=== PATIENT | male | born 1955 | race African-American/Black ===

== ENCOUNTER 2019-04-12 12:09 | Emergency (ER) | payer OTHER ==
[~2019-04-12] VITALS: Ht 190.5 cm; Wt 102.1 kg
[2019-04-12 12:36] LABS: URINE BILIRUBIN NEGATIVE (Negative); URINE BLOOD TRACE (Negative); URINE CLARITY CLEAR; URINE COLOR YELLOW; URINE GLUCOSE-RANDOM* NEGATIVE (Negative); URINE KETONES NEGATIVE (Negative); URINE LEUKOCYTES-REFLEX NEGATIVE (Negative); URINE NITRITE-REFLEX NEGATIVE (Negative); URINE PROTEIN (DIPSTICK) NEGATIVE (Negative); URINE UROBILINOGEN 0.2 E.U./dl (0.2-1.0)
[2019-04-12 13:14] LABS: ABSOLUTE NEUTROPHILS 2.9 thou/uL (1.4-8.2); BASOPHILS 0.7 % (0.0-2.0); EOSINOPHILS 3.5 % (0.0-3.0); HEMATOCRIT 40.1 % (42.0-52.0); HEMOGLOBIN 13.8 gm/dL (14.0-18.0); LYMPHOCYTES 26.4 % (24.0-44.0); MCH 32.3 pg (26.0-34.0); MCHC 34.3 g/dL (28.0-37.0); MCV 94.1 fL (80.0-100.0); MONOCYTES 8.8 % (1.0-8.0); PLATELET COUNT 334 thou/uL (150-400); POLYS 60.6 % (36.0-66.0); RBC 4.26 mil/uL (4.50-6.00); RDW 12.9 % (10.5-14.5); WBC 4.7 thou/uL (4.0-11.0)
[2019-04-12 13:23] LABS: CALCIUM 8.6 mg/dL (8.5-10.1); CREATININE 0.9 mg/dL (0.7-1.3); POTASSIUM 4.3 mmol/L (3.5-5.1)
[2019-04-12 13:29] LABS: ALBUMIN 3.5 g/dL (3.4-5.0); TOTAL BILIRUBIN 0.8 mg/dL (<0.1-1.0); TOTAL PROTEIN 7.2 g/dL (6.4-8.2)
[2019-04-12] MEDS ORDERED: ACETAMINOPHEN500 M1 PO (13:58)
[2019-04-12 14:00] VITALS: BP 159/72
== END 2019-04-12 14:00 | disposition home or self-care (01) ==
LOC: ER 12:09
PROVIDERS: Emergency Medicine
DX: K40.90 Unilateral inguinal hernia, without obstruction or gangrene, not specified as recurrent (principal)

== ENCOUNTER 2020-03-27 06:47 | Day surgery (SDC) | payer BC ==
[~2020-03-27] VITALS: Ht 190.5 cm; Wt 113.4 kg
[~2020-03-27 06:47] MED LIST: ACETAMINOPHEN500 M1 PO; DUTASTERIDE0.5 MG PO; FLOMAX0.4 MG PO; LIPITOR40 MG PO; MELOXICAM7.5 MG PO; VITAMIN C500 M2 PO; ZESTRIL40 MG PO
[2020-03-27 08:01] VITALS: BP 158/76
--- NOTE | 2020-03-27 08:22 | EKG ---
[facility] [place] [address] ELECTROCARDIOGRAM REPORT Name: MESSI PLASCENCIA Room #: 150-2 [facility]..#: [id number] Admission: 03/27/20 Attend Phys: Calixto Sellers MD Discharge: Date of : 59 Report #: [id number] THIS REPORT FOR: cc: Gray Case David J. DO Lundgren, Craig H. 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
--- NOTE | 2020-03-27 09:10 | H ---
[facility] [place] [address] HISTORY AND PHYSICAL Name: MESSI PLASCENCIA Room #: 150-2 [facility].#: [id number] Admission: 03/27/20 Attend Phys: Calixto Sellers MD Discharge: Date of : 59 Report #: [id number] THIS REPORT FOR: cc: Gray Case,Gray Burks,Calixto Cavazos MD ~ CC: Gray Helton DATE OF ADMISSION AND SURGERY: 03/27/2020 CHIEF COMPLAINT: Lump in my groin and belly button. HISTORY OF PRESENT ILLNESS: The patient is a 64-year-old -[place] male who about a year ago started noticing a lump in his left groin. It has gradually been getting larger and becomes more painful and carrillo at times. He has also noticed a bulge in his umbilicus for many years. He denied any previous history of any other hernias. No changes in bowel habits. His last colonoscopy was 3 years ago and was normal. He also denied any urinary changes. He saw Dr. Case who recommended surgical consultation. PAST MEDICAL HISTORY: Hyperlipidemia, erectile dysfunction, benign prostatic hypertrophy, left hip replacement surgery in 2006. MEDICATIONS: Minocycline 100 mg p.o. q. 12 hours, Viagra p.r.n., atorvastatin 40 mg p.o. every day, lisinopril 40 mg p.o. every day, meloxicam 7.5 mg p.o. every day, dutasteride 0.5 mg p.o. every day. ALLERGIES: No known drug allergies. FAMILY HISTORY: Noncontributory. SOCIAL HISTORY: , quit smoking in 2012. Drinks alcohol occasionally and in moderation. REVIEW OF SYSTEMS Pertinent positives as above. Full review of systems otherwise negative. PHYSICAL EXAMINATION: GENERAL: This is a well-developed, well-nourished -[place] male in no acute distress. VITAL SIGNS: Stable. He is afebrile. HEENT: Sclerae are nonicteric. Mucous membranes moist and pink. NECK: There is no adenopathy. LUNGS: Clear to auscultation bilaterally, no excursion. CARDIOVASCULAR: Regular rate and rhythm. No murmurs, S3 or S4. Normal PMI. [address] [address] HISTORY AND PHYSICAL Name: MESSI PLASCENCIA Room #: [facility]..#: [id number] Admission: 03/27/20 Attend Phys: Calixto Sellers MD Discharge: Date of : 59 Report #: [id number] ABDOMEN: Soft, flat and nontender. No palpable masses, no organomegaly. He does have a small to moderate reducible umbilical hernia. EXTREMITIES: No clubbing, cyanosis or edema. GENITOURINARY: Normal scrotum, phallus and testes. There was a moderate to large partially reducible tender left inguinal hernia. NEUROLOGIC: Intact with a clear mental status. IMPRESSION: A 64-year-old -[place] male with a left inguinal hernia and umbilical hernia. I fully discussed with the patient diagnosis, prognosis, and treatment options and the risks and benefits of each. He states he understands and agrees to proposed surgery. PLAN: We will perform left inguinal hernia repair and umbilical hernia repair under local IV sedation as an outpatient at [facility]. The procedure and its risks, benefits and possible complications were fully discussed with the patient. He states he understands and agrees to proposed surgery. We also discussed the use of mesh for these hernias. <ELECTRONICALLY SIGNED> By: Calixto Sellers MD 03/27/20 0910 [id number] Calixto Sellers MD /nt
[2020-03-27] MEDS ORDERED: NORCO 5-325 TA1 EAC1 PO (09:13)
[2020-03-27 11:24] VITALS: BP 158/76
--- NOTE | 2020-03-27 16:43 | O ---
[facility] [place] [address] OPERATIVE REPORT Name: MESSI PLASCENCIA Room #: DEP [facility]#: [id number] Admission: 03/27/20 Attend Phys: Calixto Sellers MD Discharge: 03/27/20 Date of : 59 Report #: [id number] THIS REPORT FOR: cc: Gray Case,Calixto Velez MD ~ CC: Gray Helton DATE OF SERVICE: 03/27/[address] Calixto Sellers and Dr. Gray Case. PREOPERATIVE DIAGNOSES: Left inguinal hernia and an incarcerated umbilical hernia. POSTOPERATIVE DIAGNOSES: Left inguinal hernia with a left cord lipoma and an incarcerated left umbilical hernia. PROCEDURE: Repair of a left inguinal hernia with Prolene hernia system mesh and excision of a left cord lipoma and repair of an incarcerated umbilical hernia. SURGEON: Calixto Sellers MD ANESTHESIA: Local IV sedation. DESCRIPTION OF PROCEDURE: The patient was brought to the operating room and placed on operative table in the supine position. Sequential compression devices were in place for DVT prophylaxis. There was no indication for preoperative antibiotics. The patient underwent IV sedation. The abdomen and groin were prepped and draped in a sterile fashion. Skin and subcutaneous tissue overlying the left inguinal area was infiltrated with 0.5% Marcaine and 1% Xylocaine in a 1:1 mixture. Left inguinal skin incision was then performed using #10 scalpel blade. Hemostasis obtained using electrocautery as well as clamps and 2-0 chromic ties. Dissection was carried down through subcutaneous tissue, the external oblique fascia, which was then incised with a knife and opened with the Metzenbaum scissors. The ilioinguinal nerve was identified, dissected free, injected with a local mixture and preserved. The cord was then elevated and held in place with a Medardo drain. Cremasteric muscle fibers were then split in the direction of their fibers using clamp and electrocautery. A cord lipoma was identified, dissected free, clamped, excised and tied with 2-0 chromic ties. The cord was inspected and there was a skormpuz-lh-izgwq sized indirect inguinal hernia sac, which was then dissected free and reduced back through the internal ring. The floor was inspected and found to be intact. An extended Prolene hernia system mesh was then inserted through the internal ring [address] [address] OPERATIVE REPORT Name: MESSI PLASCENCIA [id number] Admission: 03/27/20 Attend Phys: Calixto Sellers MD Discharge: 03/27/20 Date of : 59 Report #: [id number] and the underlay patch was then deployed in the preperitoneal space. The connector was left in the internal ring and the overlay patch was then deployed into the inguinal canal. The mesh was secured at the pubic tubercle superiorly and at the connector using simple interrupted 2-0 Vicryl sutures. The mesh was split, wrapped around the cord, secured to the inguinal ligament with simple interrupted 2-0 Vicryl suture. The cord and ilioinguinal nerve were then returned to the canal intact. The external oblique fascia was then closed using running 2-0 Vicryl suture. Sobia's fascia was then reapproximated using 3 simple interrupted 2-0 chromic sutures and the skin then closed with a running 4-0 subcuticular Vicryl stitch. The wound was then dressed with Mastisol, 1/2-inch Steri-Strips cut in half, Telfa, 4 x 4 gauze, sponge and tape. Attention was then turned to the umbilicus, which was then infiltrated around the umbilicus using 0.5% Marcaine and 1% Xylocaine in a 1:1 mixture. A transverse infraumbilical skin incision was then performed using a #15 scalpel blade. Hemostasis obtained using the electrocautery. The dissection was carried down through the subcutaneous tissue to an incarcerated umbilical hernia sac, which contained some preperitoneal fat. This was all dissected free and reduced back into the abdomen. The fascial defect was then closed using interrupted [id number]-ui-sayee #1 Prolene sutures. The umbilicus was then tacked to the fascia and the deep and superficial subcutaneous tissue. The fascia was then reapproximated using simple interrupted 2-0 chromic sutures. Skin was then closed using running 4-0 subcuticular Vicryl stitch. The wound was then dressed with Dermabond and the inguinal incision was dressed with Mastisol, 1/2-inch Steri-Strips cut in half and then both incisions were dressed with Telfa and 4 x 4 gauze, sponge and tape. The patient was then taken to the recovery room awake, alert and in good condition. Estimated blood loss was approximately 10 mL total and the patient tolerated procedure well. All sponge, lap and instrument counts correct x 2. <ELECTRONICALLY SIGNED> By: Calixto Sellers MD 03/27/20 1643 [id number] Calixto Sellers MD /nt
--- NOTE | 2020-03-28 16:07 | PATH ---
[facility] [address] [place] [address] PATHOLOGY RPT PROCEDURE Name: JAYA PLASCENCIA Vickey Room #: DEP [facility]..#: [id number] Admission: 03/27/20 Date of : 59 Discharge: 03/27/20 Report #: [id number] Path Case #: [id number] [facility] Accession Number: [id number] . 01 Material submitted: . hernia - CORD LIPOMA. Modifiers: left, inguinal . 01 Clinical history: . Left inguinal hernia/umbilical hernia . 02 Diagnosis: Mature adipose tissue, cord lipoma, resection: - Compatible with a lipoma. - Congestion and reactive changes identified within adjacent soft tissue. . (IUV:mml; 03/28/2020) QL 03/28/2020 1413 Local . 02 Electronically signed: . Sonya Gonzalez MD, Pathologist NPI- [id number] . 01 Gross description: . The specimen is received in formalin, labeled "Ophir, Jaya, cord lipoma" and consists of a segment of partially encased in yellow orange lobulated tissue measuring 7.7 x 2.3 x 1.4 cm. Sectioning reveals no gross lesions and food service representative tissue is submitted in A1. (SDY; 03/27/2020) SYU/SYU 03/27/2020 1714 Local . 02 Pathologist provided ICD-10: D17.79 . 02 CPT . 805838 Specimen Comment: A courtesy copy of this report has been sent to [phone], [phone] Specimen Comment: [phone] Specimen Comment: Report sent to / DR FIGUEROA Performed at: [address], [place] [id number] MD Gerry Olvera MD Phone: [phone] Performed at: [address] [id number] MD Sonya Gonzalez MD Phone: [phone]
== END 2020-03-27 12:20 | disposition home or self-care (01) ==
LOC: EDBD → OR 06:47 → TBA 07:10 → OR 10:35 → EDSTATUS 12:52 → OR 13:31
PROVIDERS: ATTEND Surgery
DX: K40.90 Unilateral inguinal hernia, without obstruction or gangrene, not specified as recurrent (principal); K42.0 Umbilical hernia with obstruction, without gangrene; E78.5 Hyperlipidemia, unspecified; N40.0 Benign prostatic hyperplasia without lower urinary tract symptoms; Z98.890 Other specified postprocedural states; Z79.899 Other long term (current) drug therapy; Z96.642 Presence of left artificial hip joint; Z87.891 Personal history of nicotine dependence; Z11.59 Encounter for screening for other viral diseases
CPT/HCPCS: 50010; 50101; 50386; 50417; 54111; 54118; 56524; 56525; 56526; 62110; 62850; 70005